=== PATIENT | male | born 1950 | race Caucasian/White ===

== ENCOUNTER 2016-11-13 23:59 | Inpatient (IN) | payer MEDICARE ==
--- NOTE | ~2016-11-13 | DS ---
Discharge Summary [facility] [address] [place]. [address] NAME: SHAZIA CASTRO : 52 STATUS : DIS IN PAT#: [id number] AGE: 66 ADM/REG DATE : 11/14/16 MR#: [id number] REPORT SERV DATE: 11/21/16 DICTATED BY: FANG LU DATE: 11/20/16 REPORT STATUS : Draft TRANSCRIBED BY: MODL DATE: 11/20/16 ADMISSION DATE: 11/14/2016 DISCHARGE DATE: 11/20/2016 ADDENDUM: The patient was transferred to inpatient SNF on 11/20/2016. This is actually an addendum to the discharge summary that I have already dictated on this patient and this was dictated on 11/19/2016. The patient was not discharged up until 11/20/2016 because the patient's family who is mainly his brother who now has the power of consumer attorney over the patient was undecided about whether the patient will get a feeding tube or not. The patient was found to be at risk for aspiration because of his previous CVA. Also, at this time as the patient was in and out of confusion, we were unsure about the decision making capacity. Hence, we obtained a psychiatric consult by Dr. Silva, who evaluated the patient and also made the decision that the patient does have the ability to make his own decisions at least as of now. However, in the future because of vascular dementia, the patient said that if he is unable to make decisions on his own, he gives his brother the power of consumer attorney verbally. For now, the patient decided that he will get a feeding tube if it was not safe for him to swallow regular food. Hence, we obtained a GI consult and Dr. Maribel Scott evaluated the patient. However, at this time, she felt that he was not a candidate for PEG tube or G-tube placement as this would not put him at any lower risk for aspiration than eating or drinking soft mechanical diet with aspiration precautions. This was conveyed to the patient and then the patient finally decided that he did not want a feeding tube and he would go on soft mechanical diet with aspiration precautions as he has been doing so far. Hence, he is being discharged to inpatient rehab/SNF in stable condition and his code status continues to be a DO NOT RESUSCITATE status and this is per patient's wishes as of now. This is an addendum to my discharge summary that has already been dictated on this patient and I have spent about 35 minutes in coordinating discharge care of this patient including [id number] encounter and summarizing this discharge on 11/20/2016. All the other medications and all the other content that has been dictated in my discharge summary completely remains exactly the same as it has been. DICTATED BY: Juan A Sampson/MARTINA Fang Lu M.D. / [id number] CC: Discharge Summary [address] [address] NAME: SHAZIA CASTRO : 52 STATUS : DIS IN PAT#: [id number] AGE: 66 ADM/REG DATE : 11/14/16 MR#: [id number] REPORT SERV DATE: 11/21/16 DICTATED BY: FANG LU DATE: 11/20/16 REPORT STATUS : Draft TRANSCRIBED BY: MARTINA DATE: 11/20/16 Fang Lu M.D.
--- NOTE | ~2016-11-13 | HP ---
History And Physical [place] [address] [facility] [place]. [address] NAME: SHAZIA BANUELOS : 52 STATUS : ADM IN PAT#: [id number] AGE: 66 ADM/REG DATE : 11/14/16 MR#: [id number] REPORT SERV DATE: 11/14/16 DICTATED BY: PANCHO ARELLANO DATE: 11/14/16 REPORT STATUS : Draft TRANSCRIBED BY: MODElicia DATE: 11/14/16 DATE OF ADMISSION: 11/14/2016 POINT OF ENTRY: [facility] Emergency Department. PRIMARY CARE PHYSICIAN: None at this time, is to be Dr. Fazal Roberson beginning next week. CHIEF COMPLAINT: Weakness, left wrist pain, and concerns for aspiration. HISTORY OF PRESENT ILLNESS: Mr. Banuelos is a 66-year-old gentleman with history of insulin-dependent diabetes mellitus type 2, hypertension, hyperlipidemia, chronic kidney disease stage 3 to stage 4 as well as a recent cerebrovascular accident with resulting left- sided hemiparesis, who is brought to the emergency department today with reports of worsening weakness, anorexia, concern for aspiration, as well as severe left wrist pain. The patient was admitted to [facility] on 09/05/2016 for fall with left-sided weakness and diagnosed with an acute cerebrovascular accident in the right basal ganglia region. The patient was then transferred to the rehab unit at [facility] on 09/25/2016 and was discharged from there on 10/30/2016. The patient states that he has had persistent left wrist pain since admission in August secondary to the fall related to the stroke. He reportedly had plain films as well as an MRI of the left upper extremity at [facility] that was otherwise unremarkable. The patient's hospital stay also noted for dysphagia related to his stroke, is currently on mechanical soft diet with thickened liquids. He also had some troubles with depression requiring Psychiatry consultation and adjustment of some medications. The patient also noted to have chronic kidney disease. He states that the first few days after discharge from the Rehab Facility he was doing well, but then over the past week to week and a half, family has been concerned that he has gotten progressively weaker. He is not eating as much as he used to. He is becoming more lethargic. About a week and a half ago, home Health was concerned for possible pneumonia versus bronchitis. He was seen in an urgent care center and prescribed a course of azithromycin and steroids for presumed bronchitis. These have now been completed for about a week. Family states that he does occasionally cough after eating despite use of aspiration precautions, and they have documented two separate choking episodes this week alone. They deny any fevers, night sweats, chills, chest pain, abdominal pain, nausea, vomiting, diarrhea, constipation, dysuria, melena, hematochezia, or hemoptysis. The patient reports cough, weakness, and left wrist pain as his main complaints. Initial evaluation in the emergency department noted for a CT scan of the brain that was unremarkable. EKG is normal sinus rhythm. Chest x-ray shows a possible right lower lobe infiltrate. Labs notable for a white count of 15,300. The patient was subsequently admitted to the Hospitalist Service for further evaluation and management. History And Physical [address] [address] NAME: SHAZIA BANUELOS : 52 STATUS : ADM IN [facility]#: [id number] AGE: 66 ADM/REG DATE : 11/14/16 MR#: [id number] REPORT SERV DATE: 11/14/16 DICTATED BY: PANCHO ARELLANO DATE: 11/14/16 REPORT STATUS : Draft TRANSCRIBED BY: MARTINA DATE: 11/14/16 REVIEW OF SYSTEMS: Comprehensive review of systems otherwise negative unless listed in history of present illness. PREVIOUS MEDICAL HISTORY: 1. History of cerebrovascular accident with resulting left-sided hemiparesis and dysphagia. 2. Insulin-dependent diabetes mellitus type 2. 3. Hypertension. 4. Hyperlipidemia. 5. Chronic kidney disease stage 3 to stage 4. 6. COPD. 7. Depression. 8. Dysphagia and aspiration risk. SURGICAL HISTORY: Inguinal hernia repair. ALLERGIES: NO KNOWN DRUG ALLERGIES. HOME MEDICATIONS: 1. Aspirin 325 mg daily. 2. Atorvastatin 80 mg at bedtime. 3. Carvedilol 25 mg b.i.d. 4. Depakote 1000 mg b.i.d. 5. Docusate 100 mg b.i.d. 6. Pepcid 20 mg daily. 7. Levemir 10 units daily. 8. Insulin sliding scale. 9. Claritin 10 mg daily. 10.Niacin a 1000 mg daily. 11.Nifedipine 90 mg daily. 12.Ditropan XL 10 mg daily. 13.Protonix 40 mg daily. 14.MiraLAX one packet daily. 15.Risperdal 0.25 mg b.i.d. 16.Requip 0.125 mg at bedtime. 17.Aldactone 25 mg daily. 18.Tramadol 50 mg q.6 hours p.r.n. SOCIAL HISTORY: He is a former smoker, but quit with the diagnosis of a stroke. No longer uses alcohol or drugs, which he previously did prior to a stroke, now living with his brother after discharge from rehab. FAMILY MEDICAL HISTORY: Mother with diabetes, hypertension, Parkinson disease. Father with Alzheimer's. Siblings with diabetes, hypertension, and hyperlipidemia. History And Physical [address] [address] NAME: SHAZIA BANUELOS : 52 STATUS : ADM IN [facility]#: [id number] AGE: 66 ADM/REG DATE : 11/14/16 MR#: [id number] REPORT SERV DATE: 11/14/16 DICTATED BY: PANCHO ARELLANO DATE: 11/14/16 REPORT STATUS : Draft TRANSCRIBED BY: MARTINA DATE: 11/14/16 LABS AND IMAGIN. White count is 15.3, hemoglobin is 9.1, hematocrit is 25.8, and platelet count is 103. INR 1.2. 2. Sodium is 146, potassium 5.0, chloride 117, carbon dioxide 21, BUN 60, creatinine 2.56, glucose is 79, calcium is 8.9, protein 6.3, albumin is 2.2, bilirubin is 0.4, ALT is 62, AST 34, and alkaline phosphatase is 70. 3. Troponin is negative. 4. Urinalysis: Specific gravity is 1.013, hazy with no evidence of any infection with some protein and glucose in it though. 5. Chest x-ray per review shows right lower lobe infiltrate. 6. EKG per my review shows normal sinus rhythm with some inferior Q-waves, no evidence of any acute ischemic infarction. CT scan of the head shows old lacunar cerebrovascular accident as well as some chronic age-related ischemic changes but no acute intracranial abnormality. PHYSICAL EXAMINATION: VITAL SIGNS: Temperature is 98.1 degrees Fahrenheit, pulse is 71, respirations 16, saturating 97% on room air, and blood pressure 134/60. GENERAL: The patient is awake, alert, in no acute distress. Resting comfortably in bed. He is an elderly chronically ill-appearing male. Family is at bedside. HEENT: Atraumatic and normocephalic. Dry mucous membranes. Pupils are equal, round, reactive to light and accommodation. Extraocular eye movements intact. No scleral icterus. NECK: No jugular venous distention. No carotid bruits. CARDIAC: Regular rate and rhythm. No murmurs or gallops. Normal S1, S2. LUNGS: Does have some faint inspiratory crackles and rhonchi in the right lung base. ABDOMEN: Soft, nontender, nondistended. Good bowel sounds. No rebound, guarding, or rigidity. EXTREMITIES: Warm and perfused. No cyanosis, clubbing, or edema. The left wrist is very tender to palpation. I do not appreciate any overlying effusion, erythema, or swelling in the left wrist area. SKIN: Warm and dry. PSYCH: Affect appropriate. NEURO: Alert and oriented x3. Cranial nerves 2 through 12 grossly intact first except for some left-sided facial droop and mild dysarthria. His left upper extremity is weak and however limited by a wrist pain. ASSESSMENT: Mr. Banuelos is a 66-year-old gentleman with recent acute cerebrovascular accident resulting in left-sided hemiparesis and dysphagia who presents to the emergency room today with worsening weakness, cough, wrist pain, and generalized failure to thrive and found to have evidence of a right lower lobe pneumonia concerning for aspiration pneumonia as well as chronic kidney stage 3 to stage 4. PROBLEM LIST: 1. Right lower lobe pneumonia concerning for possible aspiration pneumonia. 2. Weakness and debility. 3. Left wrist pain. 4. Chronic kidney disease stage 3 to stage 4. History And Physical [address] [address] NAME: SHAZIA BANUELOS : 52 STATUS : ADM IN [facility]#: [id number] AGE: 66 ADM/REG DATE : 11/14/16 MR#: [id number] REPORT SERV DATE: 11/14/16 DICTATED BY: PANCHO ARELLANO DATE: 11/14/16 REPORT STATUS : Draft TRANSCRIBED BY: MODElicia DATE: 11/14/16 5. Insulin-dependent diabetes mellitus, type 2. 6. History of cerebrovascular accident. 7. Dysphagia. 8. Leukocytosis. 9. Thrombocytopenia. PLAN: 1. Pneumonia, likely aspiration pneumonia. We will place the patient on IV antibiotics to cover healthcare associated as well as aspiration pneumonia. Try to obtain sputum cultures. Order urinary antigens. We will place the patient on aspiration precautions and make the patient nothing by mouth pending evaluation by Speech Therapy. 2. Weakness and debility. Likely secondary to the patient's underlying stroke as well as other medical comorbidities such as chronic kidney disease stage 3 to 4 as well as acute pneumonia. We will ask Physical Therapy to evaluate the patient as well as Case Management Social Work consultations as the patient likely will need fci versus acute rehab placement again. 3. Left wrist pain. The patient states he has had left wrist pain because of his fall in August. They state that he had an MRI at [facility], which we will try to obtain records before we repeat any imaging here. 4. Chronic kidney disease stage 3 to stage 4. The patient appears to be within his recent baseline per review of records that were obtained overnight. Continue some gentle IV hydration. 5. Insulin-dependent diabetes mellitus type 2, level 1 insulin sliding scale. 6. History of cerebrovascular accident. Continue the patient's home aspirin and statin. Again, physical therapy consultation. 7. DVT prophylaxis. Heparin subcu. CODE STATUS: The patient wishes to be full code. SUE/MODL Pancho Arellano MD / [id number] CC: Jaret Dupont DO
--- NOTE | ~2016-11-13 | DS ---
Discharge Summary [facility] [address] [facility] [place]. [address] NAME: SHAZIA BANUELOS : 52 STATUS : ADM IN [facility]#: [id number] AGE: 66 ADM/REG DATE : 11/14/16 MR#: [id number] REPORT SERV DATE: 11/19/16 DICTATED BY: FANG LU DATE: 11/18/16 REPORT STATUS : Draft TRANSCRIBED BY: MODElicia DATE: 11/18/16 ADMISSION DATE: 11/14/2016 DISCHARGE DATE: 11/17/2016 Date of discharge to inpatient rehab/SNF is 11/17/2016. CONDITION ON DISCHARGE: Stable. CODE STATUS: Code status of the patient is Do Not Resuscitate status. DIAGNOSES ON DISCHARGE: 1. Aspiration pneumonia - resolved after five days of IV antibiotics. 2. Acute/subacute cerebrovascular accident with left-sided hemiparesis that is fairly new. 3. Multiple old lacunar strokes with minimal right-sided weakness, dysphagia, aphasia, and also mild chronic encephalopathy. 4. Acute kidney injury on chronic kidney disease - resolved with IV fluids. 5. Chronic kidney disease, stage III with creatinine at baseline at around 2 which is stable. 6. Insulin-requiring diabetes mellitus - stable. 7. Diabetic nephropathy with chronic kidney disease, stage III as mentioned above. BRIEF HOSPITAL COURSE: Mr. Banuelos is a 66-year-old gentleman with a history of multiple lacunar strokes in the past, chronic encephalopathy, and also chronic aphasia and dysphagia who came in with increasing weakness on the left side at this time. CT scan of the head did show several old lacunar strokes. The patient may have suffered another acute/subacute stroke which may have worsened his left-sided hemiparesis. Also, he was admitted for aspiration pneumonia along with this and started on IV antibiotics namely IV Flagyl and also on levofloxacin. The patient's condition improved and his aspiration pneumonia completely resolved on the day of discharge. His left-sided hemiparesis persists, his aphasia persists, and his dysphagia persists. After talking at length with the patient, he refuses a feeding tube. Hence, his diet will be nectar thick liquids thickened with Thick-it and also Glucerna thickened with Thick-it at least twice a day. The patient will be fed with strict aspiration precautions that will be taken. Other than this, the patient has refused a feeding tube, but his code status is a Do Not Resuscitate status. This is also after discussing with his brother, Ever Banuelos. His acute kidney injury has also improved with IV fluids during hospitalization. Hence, he is being sent to inpatient rehab for further rehab on his stroke though discharge medications will be as follows: First of all, the patient will be going on amlodipine 10 mg p.o. crushed daily, aspirin 325 mg p.o. daily, Lipitor 80 mg p.o. daily, Depakote 1000 mg p.o. b.i.d. for seizure precautions, Colace 100 mg p.o. b.i.d., Pepcid 20 mg once a day, Heparin 5000 units subcutaneously every 8 hours for DVT prevention, sliding scale insulin at low dose, Claritin 10 mg once a day, carvedilol 12.5 mg p.o. twice a day, niacin 1000 mg p.o. daily, Ditropan will not be continued, Protonix 40 mg before breakfast, Risperdal 0.25 mg p.o. b.i.d., Requip 0.125 mg p.o. at bedtime, spironolactone 25 mg p.o. daily. The patient will also be Discharge Summary [address] [address] NAME: SHAZIA BANUELOS : 52 STATUS : ADM IN [facility]#: [id number] AGE: 66 ADM/REG DATE : 11/14/16 MR#: [id number] REPORT SERV DATE: 11/19/16 DICTATED BY: FANG LU DATE: 11/18/16 REPORT STATUS : Draft TRANSCRIBED BY: MODL DATE: 11/18/16 on DuoNeb q.4 hours while awake. Levemir insulin 10 units subcu daily. Labs that I have that are most recent on discharge include the following: On the day of discharge, his sodium is 142, potassium is 3.7, bicarb is 16, BUN is 33, creatinine is 2.1. WBC count is 10.5, hemoglobin 8.6, hematocrit is 24.8, and platelet count is 141. His TSH is normal at 0.674. CT scan findings are as above. Hence, he is being discharged to inpatient rehab in stable condition to rehab related from his stroke. I have spent about 40 minutes in coordinating discharge care of this patient. DICTATED BY: Juan A Sampson/MARTINA Fang Lu M.D. / [id number] CC: Fang Lu M.D.
[2016-11-14 00:06] LABS: BASOPHILS 0.1 %; BASOPHILS ABSOLUTE 0.01 10/3/uL (0.0-0.16); EOSINOPHILS 0.5 %; EOSINOPHILS ABSOLUTE 0.07 10/3/uL (0.0-0.53); HEMATOCRIT 25.8 % (40.0-51.0); HEMOGLOBIN 9.1 g/dL (13.6-17.8); IMMATURE GRANULOCYTES 0.5 %; IMMATURE GRANULOCYTES ABSOLUTE 0.08 10/3/uL (0.0-0.11); LYMPHOCYTES 11.4 %; LYMPHOCYTES ABSOLUTE 1.74 10/3/uL (0.67-4.30); MANUAL DIFF NO %; MEAN CORPUS HGB CONC 35.3 g/dL (32.0-36.0); MEAN CORPUSCULAR HEMOGLOB 33.2 pg (26.0-34.0); MEAN CORPUSCULAR VOLUME 94.2 fL (80-100); MEAN PLATELET VOLUME 9.5 fL (9.2-13.0); MONOCYTES 10.5 %; NEUTROPHILS ABSOLUTE 11.78 10/3/uL (2.02-8.40); PLATELET COUNT 103 10/3/uL (150-400); RBC DISTRIBUTION WIDTH 14.2 % (12.0-16.0); RED CELL COUNT 2.74 10/6/uL (4.7-6.1); WHITE BLOOD CELLS 15.3 10/3/uL (4.5-10.5)
[2016-11-14 00:18] LABS: INTERNATIONAL NORMAL RATI 1.2 UNITS (-); PARTIAL THROMBO TIME 35.1 SEC (22.5-37.2)
[2016-11-14 00:28] LABS: A/G RATIO 0.5 (0.7-1.9); ALBUMIN 2.2 G/DL (3.5-5.0); ALKALINE PHOSPHATASE 70 U/L (45-117); BUN (BLOOD UREA NITROGEN) 60 MG/DL (6-23); CALCIUM, SERUM 8.9 MG/DL (8.5-10.4); CHLORIDE, SERUM 117 MMOL/L (96-112); CO2 (CARBON DIOXIDE) 21 MMOL/L (24-34); CREATININE 2.56 MG/DL (0.70-1.30); GFR AFRICAN AMERICAN 29 ML/MIN (>=60); GFR NON AFRICAN AMERICAN 25 ML/MIN (>=60); GLOBULIN 4.1 G/DL (2.5-4.1); GLUCOSE, SERUM 79 MG/DL (60-99); SGOT(AST) 34 U/L (5-40); SGPT(ALT) 62 U/L (5-65); SODIUM, SERUM 146 MMOL/L (135-148); TOTAL BILIRUBIN 0.4 MG/DL (0-1.2); TOTAL PROTEIN 6.3 G/DL (6.0-8.5); TROPONIN I 0.02 NG/ML (<0.05)
[2016-11-14 00:29] LABS: PROTIME (NOT ORD) 14.9 SEC (12.0-14.5)
[2016-11-14 00:44] LABS: ASCORBIC ACID (UR NOT ORDER) NEG (NEG); BILIRUBIN, URINE NEGATIVE (NEG); ER URINALYSIS TAT 0 Hrs 00 Mins; KETONE, URINE NEGATIVE (NEG); LEUKOCYTE ESTERASE(NOT OR NEG (NEG); NITRITE (URINE) NEG (NEG); WBC (NOT ORDERED) (RFLEX) 0 (0-5)
[2016-11-14 01:46] LABS: PROCALCITONIN 0.34 ng/mL (<0.5)
[2016-11-14] MEDS ORDERED: LIPITOR80 MG PO (03:12)
[2016-11-14] MEDS ORDERED: ASA5GR PO (03:12)
[2016-11-14] MEDS ORDERED: COREG25 PO (03:12)
[2016-11-14] MEDS ORDERED: DEPAKOT500 PO (03:13)
[2016-11-14] MEDS ORDERED: PEP20 PO (03:14)
[2016-11-14] MEDS ORDERED: DSS PO (03:14)
[2016-11-14] MEDS ORDERED: LEVEMIR SC (03:14)
[2016-11-14] MEDS ORDERED: HUMALOG SC (03:16)
[2016-11-14] MEDS ORDERED: CLARIT10 PO (03:17)
[2016-11-14] MEDS ORDERED: NIACOR500 MG PO (03:17)
[2016-11-14] MEDS ORDERED: DITROPAN XL10 MG PO (03:18)
[2016-11-14] MEDS ORDERED: PROTONIX PO (03:18)
[2016-11-14] MEDS ORDERED: ADALAT CC90 MG PO (03:18)
[2016-11-14] MEDS ORDERED: RISPERDAL0.25 MG PO (03:19)
[2016-11-14] MEDS ORDERED: MIRALAX POWDER1 PKT PO (03:19)
[2016-11-14] MEDS ORDERED: SPIRO25 PO (03:20)
[2016-11-14] MEDS ORDERED: REQUIP25 PO (03:20)
[2016-11-14] MEDS ORDERED: ULTRAM50 PO (03:20)
[2016-11-14 05:53] LABS: ALLENS TEST Pos; BE (BASE EXCESS) -7.6 MEQ/L (0 +/- 2.5); CARBOXYHEMOGLOBIN 0.4 % (0-3); HEMOBLOGIN CONTENT 11.5 G/DL (14-18); INSTRUMENT SERIAL # 8083; METHEMOGLOBIN 0.3 % (0-3); OPERATOR ID 16469; PCO2 (CO2 TENSION) 27 MMHG (35-45); PO2 (O2 TENSION) 69 MMHG (79-93); SAMPLE Arterial; pH 7.39 (7.37-7.43)
[2016-11-14 06:16] LABS: CREATININE, URINE 72.7 MG/DL
[2016-11-14 07:40] LABS: BASOPHILS 0.1 %; BASOPHILS ABSOLUTE 0.01 10/3/uL (0.0-0.16); EOSINOPHILS 0.5 %; EOSINOPHILS ABSOLUTE 0.07 10/3/uL (0.0-0.53); HEMATOCRIT 25.1 % (40.0-51.0); HEMOGLOBIN 8.7 g/dL (13.6-17.8); IMMATURE GRANULOCYTES 0.3 %; IMMATURE GRANULOCYTES ABSOLUTE 0.04 10/3/uL (0.0-0.11); LYMPHOCYTES 9.9 %; LYMPHOCYTES ABSOLUTE 1.32 10/3/uL (0.67-4.30); MEAN CORPUS HGB CONC 34.7 g/dL (32.0-36.0); MEAN CORPUSCULAR HEMOGLOB 33.2 pg (26.0-34.0); MEAN CORPUSCULAR VOLUME 95.8 fL (80-100); MEAN PLATELET VOLUME 9.3 fL (9.2-13.0); MONOCYTES 9.6 %; MONOCYTES ABSOLUTE 1.28 10/3/uL (0.21-1.20); NEUTROPHILS 79.6 %; NEUTROPHILS ABSOLUTE 10.66 10/3/uL (2.02-8.40); PLATELET COUNT 95 10/3/uL (150-400); RBC DISTRIBUTION WIDTH 14.1 % (12.0-16.0); RED CELL COUNT 2.62 10/6/uL (4.7-6.1); WHITE BLOOD CELLS 13.4 10/3/uL (4.5-10.5)
[2016-11-14 07:42] LABS: MANUAL DIFF NO %
[2016-11-14 08:07] LABS: ALBUMIN 2.1 G/DL (3.5-5.0); BUN (BLOOD UREA NITROGEN) 59 MG/DL (6-23); CALCIUM, SERUM 8.7 MG/DL (8.5-10.4); CHLORIDE, SERUM 118 MMOL/L (96-112); CO2 (CARBON DIOXIDE) 17 MMOL/L (24-34); CREATININE 2.53 MG/DL (0.70-1.30); GFR AFRICAN AMERICAN 30 ML/MIN (>=60); GFR NON AFRICAN AMERICAN 26 ML/MIN (>=60); GLUCOSE, SERUM 90 MG/DL (60-99); PHOSPHORUS, SERUM 4.7 MG/DL (2.5-4.5); POTASSIUM, SERUM 4.5 MMOL/L (3.5-5.3); SODIUM, SERUM 146 MMOL/L (135-148); ULTRASENSITIVE TSH 0.674 MCIU/ML (0.358-3.740)
[2016-11-14 08:34] LABS: PROCALCITONIN 0.28 ng/mL (<0.5)
[2016-11-14 11:29] LABS: GLYCOHEMOGLOBIN (HbA1c) 6.9 % (4.7-6.1)
[2016-11-15 06:35] LABS: HEMATOCRIT 26.8 % (40.0-51.0); HEMOGLOBIN 8.9 g/dL (13.6-17.8); MEAN CORPUS HGB CONC 33.2 g/dL (32.0-36.0); MEAN CORPUSCULAR HEMOGLOB 32.7 pg (26.0-34.0); MEAN CORPUSCULAR VOLUME 98.5 fL (80-100); MEAN PLATELET VOLUME 9.5 fL (9.2-13.0); PLATELET COUNT 106 10/3/uL (150-400); RBC DISTRIBUTION WIDTH 14.1 % (12.0-16.0); RED CELL COUNT 2.72 10/6/uL (4.7-6.1)
[2016-11-15 06:38] LABS: MANUAL DIFF YES %
[2016-11-15 06:45] LABS: CALCIUM, SERUM 8.9 MG/DL (8.5-10.4); CHLORIDE, SERUM 119 MMOL/L (96-112); CO2 (CARBON DIOXIDE) 17 MMOL/L (24-34); CREATININE 2.18 MG/DL (0.70-1.30); GFR AFRICAN AMERICAN 36 ML/MIN (>=60); GFR NON AFRICAN AMERICAN 31 ML/MIN (>=60); PHOSPHORUS, SERUM 4.1 MG/DL (2.5-4.5); POTASSIUM, SERUM 4.2 MMOL/L (3.5-5.3); SODIUM, SERUM 146 MMOL/L (135-148)
[2016-11-15 06:46] LABS: BUN (BLOOD UREA NITROGEN) 51 MG/DL (6-23); GLUCOSE, SERUM 109 MG/DL (60-99)
[2016-11-15 07:41] LABS: BAND NEUTROPHILS 9 %; LYMPHOCYTES 9 %; MONOCYTES 7 %; PLATELET ESTIMATE SLT DEC (ADEQUATE); RBC MORPHOLOGY NORM (NORMAL); SEGMENTED NEUTROPHIL (0) 75 %; TOTAL NUCLEATED CELLS 100
[2016-11-16 04:37] LABS: BASOPHILS 0.3 %; BASOPHILS ABSOLUTE 0.02 10/3/uL (0.0-0.16); EOSINOPHILS 1.3 %; HEMATOCRIT 25.4 % (40.0-51.0); HEMOGLOBIN 8.7 g/dL (13.6-17.8); IMMATURE GRANULOCYTES 0.8 %; IMMATURE GRANULOCYTES ABSOLUTE 0.06 10/3/uL (0.0-0.11); LYMPHOCYTES 19.5 %; LYMPHOCYTES ABSOLUTE 1.56 10/3/uL (0.67-4.30); MEAN CORPUS HGB CONC 34.3 g/dL (32.0-36.0); MEAN CORPUSCULAR HEMOGLOB 32.6 pg (26.0-34.0); MEAN PLATELET VOLUME 9.1 fL (9.2-13.0); NEUTROPHILS 68.1 %; NEUTROPHILS ABSOLUTE 5.44 10/3/uL (2.02-8.40); PLATELET COUNT 118 10/3/uL (150-400); RBC DISTRIBUTION WIDTH 14.3 % (12.0-16.0); RED CELL COUNT 2.67 10/6/uL (4.7-6.1)
[2016-11-16 04:41] LABS: MANUAL DIFF NO %; MEAN CORPUSCULAR VOLUME 95.1 fL (80-100)
[2016-11-16 04:53] LABS: CHLORIDE, SERUM 121 MMOL/L (96-112); CREATININE 1.96 MG/DL (0.70-1.30); GFR AFRICAN AMERICAN 40 ML/MIN (>=60); GFR NON AFRICAN AMERICAN 35 ML/MIN (>=60); GLUCOSE, SERUM 96 MG/DL (60-99); PHOSPHORUS, SERUM 3.7 MG/DL (2.5-4.5); POTASSIUM, SERUM 3.6 MMOL/L (3.5-5.3); SODIUM, SERUM 152 MMOL/L (135-148)
[2016-11-16 04:57] LABS: BUN (BLOOD UREA NITROGEN) 42 MG/DL (6-23); CO2 (CARBON DIOXIDE) 22 MMOL/L (24-34)
[2016-11-17 05:51] LABS: BASOPHILS 0.1 %; BASOPHILS ABSOLUTE 0.01 10/3/uL (0.0-0.16); EOSINOPHILS 1.6 %; EOSINOPHILS ABSOLUTE 0.13 10/3/uL (0.0-0.53); HEMATOCRIT 25.3 % (40.0-51.0); HEMOGLOBIN 8.7 g/dL (13.6-17.8); IMMATURE GRANULOCYTES 0.5 %; IMMATURE GRANULOCYTES ABSOLUTE 0.04 10/3/uL (0.0-0.11); LYMPHOCYTES 18.9 %; LYMPHOCYTES ABSOLUTE 1.53 10/3/uL (0.67-4.30); MEAN CORPUS HGB CONC 34.4 g/dL (32.0-36.0); MEAN CORPUSCULAR HEMOGLOB 33.1 pg (26.0-34.0); MEAN CORPUSCULAR VOLUME 96.2 fL (80-100); MEAN PLATELET VOLUME 8.8 fL (9.2-13.0); MONOCYTES 8.4 %; MONOCYTES ABSOLUTE 0.68 10/3/uL (0.21-1.20); NEUTROPHILS 70.5 %; NEUTROPHILS ABSOLUTE 5.72 10/3/uL (2.02-8.40); PLATELET COUNT 128 10/3/uL (150-400); RBC DISTRIBUTION WIDTH 13.8 % (12.0-16.0); RED CELL COUNT 2.63 10/6/uL (4.7-6.1); WHITE BLOOD CELLS 8.1 10/3/uL (4.5-10.5)
[2016-11-17 05:52] LABS: MANUAL DIFF NO %
[2016-11-17 05:55] LABS: BUN (BLOOD UREA NITROGEN) 40 MG/DL (6-23); CALCIUM, SERUM 8.7 MG/DL (8.5-10.4); CHLORIDE, SERUM 119 MMOL/L (96-112); CO2 (CARBON DIOXIDE) 25 MMOL/L (24-34); CREATININE 2.02 MG/DL (0.70-1.30); GFR AFRICAN AMERICAN 39 ML/MIN (>=60); GFR NON AFRICAN AMERICAN 34 ML/MIN (>=60); POTASSIUM, SERUM 3.7 MMOL/L (3.5-5.3); SODIUM, SERUM 151 MMOL/L (135-148)
[2016-11-17 05:56] LABS: GLUCOSE, SERUM 173 MG/DL (60-99)
[2016-11-18 05:57] LABS: BASOPHILS 0.1 %; BASOPHILS ABSOLUTE 0.01 10/3/uL (0.0-0.16); EOSINOPHILS 1.5 %; EOSINOPHILS ABSOLUTE 0.16 10/3/uL (0.0-0.53); HEMATOCRIT 24.8 % (40.0-51.0); HEMOGLOBIN 8.6 g/dL (13.6-17.8); IMMATURE GRANULOCYTES 0.2 %; IMMATURE GRANULOCYTES ABSOLUTE 0.02 10/3/uL (0.0-0.11); LYMPHOCYTES 16.1 %; LYMPHOCYTES ABSOLUTE 1.69 10/3/uL (0.67-4.30); MANUAL DIFF NO %; MEAN CORPUS HGB CONC 34.7 g/dL (32.0-36.0); MEAN CORPUSCULAR HEMOGLOB 32.6 pg (26.0-34.0); MEAN CORPUSCULAR VOLUME 93.9 fL (80-100); MEAN PLATELET VOLUME 8.9 fL (9.2-13.0); MONOCYTES 3.2 %; MONOCYTES ABSOLUTE 0.34 10/3/uL (0.21-1.20); NEUTROPHILS 78.9 %; NEUTROPHILS ABSOLUTE 8.29 10/3/uL (2.02-8.40); PLATELET COUNT 141 10/3/uL (150-400); RBC DISTRIBUTION WIDTH 13.4 % (12.0-16.0); RED CELL COUNT 2.64 10/6/uL (4.7-6.1); WHITE BLOOD CELLS 10.5 10/3/uL (4.5-10.5)
[2016-11-18 06:11] LABS: CALCIUM, SERUM 8.6 MG/DL (8.5-10.4); CHLORIDE, SERUM 111 MMOL/L (96-112); CO2 (CARBON DIOXIDE) 24 MMOL/L (24-34); CREATININE 2.18 MG/DL (0.70-1.30); GFR AFRICAN AMERICAN 36 ML/MIN (>=60); GFR NON AFRICAN AMERICAN 31 ML/MIN (>=60); GLUCOSE, SERUM 179 MG/DL (60-99); PHOSPHORUS, SERUM 2.3 MG/DL (2.5-4.5); POTASSIUM, SERUM 3.7 MMOL/L (3.5-5.3)
[2016-11-18 06:14] LABS: BUN (BLOOD UREA NITROGEN) 33 MG/DL (6-23); SODIUM, SERUM 142 MMOL/L (135-148)
[2016-11-19 05:22] LABS: BASOPHILS 0.1 %; BASOPHILS ABSOLUTE 0.01 10/3/uL (0.0-0.16); EOSINOPHILS 2.1 %; EOSINOPHILS ABSOLUTE 0.17 10/3/uL (0.0-0.53); HEMATOCRIT 25.2 % (40.0-51.0); HEMOGLOBIN 8.9 g/dL (13.6-17.8); IMMATURE GRANULOCYTES 0.4 %; IMMATURE GRANULOCYTES ABSOLUTE 0.03 10/3/uL (0.0-0.11); LYMPHOCYTES 22.6 %; LYMPHOCYTES ABSOLUTE 1.79 10/3/uL (0.67-4.30); MEAN CORPUS HGB CONC 35.3 g/dL (32.0-36.0); MEAN CORPUSCULAR HEMOGLOB 32.8 pg (26.0-34.0); MEAN PLATELET VOLUME 8.8 fL (9.2-13.0); MONOCYTES 4.8 %; MONOCYTES ABSOLUTE 0.38 10/3/uL (0.21-1.20); NEUTROPHILS ABSOLUTE 5.53 10/3/uL (2.02-8.40); PLATELET COUNT 140 10/3/uL (150-400); RBC DISTRIBUTION WIDTH 13.1 % (12.0-16.0); RED CELL COUNT 2.71 10/6/uL (4.7-6.1); WHITE BLOOD CELLS 7.9 10/3/uL (4.5-10.5)
[2016-11-19 05:23] LABS: MANUAL DIFF NO %
[2016-11-19 05:43] LABS: CALCIUM, SERUM 8.4 MG/DL (8.5-10.4); CHLORIDE, SERUM 108 MMOL/L (96-112); CO2 (CARBON DIOXIDE) 25 MMOL/L (24-34); CREATININE 1.89 MG/DL (0.70-1.30); GFR AFRICAN AMERICAN 42 ML/MIN (>=60); GFR NON AFRICAN AMERICAN 36 ML/MIN (>=60); PHOSPHORUS, SERUM 2.4 MG/DL (2.5-4.5); POTASSIUM, SERUM 3.6 MMOL/L (3.5-5.3); SODIUM, SERUM 139 MMOL/L (135-148)
[2016-11-19 05:46] LABS: BUN (BLOOD UREA NITROGEN) 26 MG/DL (6-23); GLUCOSE, SERUM 127 MG/DL (60-99)
[2016-11-20 04:23] LABS: BASOPHILS 0.1 %; BASOPHILS ABSOLUTE 0.01 10/3/uL (0.0-0.16); EOSINOPHILS ABSOLUTE 0.16 10/3/uL (0.0-0.53); HEMATOCRIT 24.9 % (40.0-51.0); HEMOGLOBIN 8.8 g/dL (13.6-17.8); IMMATURE GRANULOCYTES 0.5 %; IMMATURE GRANULOCYTES ABSOLUTE 0.04 10/3/uL (0.0-0.11); LYMPHOCYTES 18.8 %; LYMPHOCYTES ABSOLUTE 1.47 10/3/uL (0.67-4.30); MEAN CORPUS HGB CONC 35.3 g/dL (32.0-36.0); MEAN CORPUSCULAR HEMOGLOB 32.6 pg (26.0-34.0); MEAN CORPUSCULAR VOLUME 92.2 fL (80-100); MEAN PLATELET VOLUME 8.8 fL (9.2-13.0); MONOCYTES 6.5 %; MONOCYTES ABSOLUTE 0.51 10/3/uL (0.21-1.20); NEUTROPHILS 72.1 %; NEUTROPHILS ABSOLUTE 5.63 10/3/uL (2.02-8.40); PLATELET COUNT 163 10/3/uL (150-400); RBC DISTRIBUTION WIDTH 13.4 % (12.0-16.0); WHITE BLOOD CELLS 7.8 10/3/uL (4.5-10.5)
[2016-11-20 04:24] LABS: MANUAL DIFF NO %
[2016-11-20 04:34] LABS: BUN (BLOOD UREA NITROGEN) 23 MG/DL (6-23); CALCIUM, SERUM 8.2 MG/DL (8.5-10.4); CHLORIDE, SERUM 109 MMOL/L (96-112); CO2 (CARBON DIOXIDE) 25 MMOL/L (24-34); CREATININE 1.97 MG/DL (0.70-1.30); GFR AFRICAN AMERICAN 40 ML/MIN (>=60); GFR NON AFRICAN AMERICAN 35 ML/MIN (>=60); GLUCOSE, SERUM 150 MG/DL (60-99); PHOSPHORUS, SERUM 2.5 MG/DL (2.5-4.5); POTASSIUM, SERUM 3.5 MMOL/L (3.5-5.3); SODIUM, SERUM 142 MMOL/L (135-148)
[2016-11-24] MEDS ORDERED: COMBIVENT RESPIM4 GM INH (04:40)
[2016-11-24] MEDS ORDERED: ASTELIN NAS ×2 (04:40→11:56)
[2016-11-24] MEDS ORDERED: ASAEC PO (11:55)
[2016-11-24] MEDS ORDERED: NORV10 PO (11:55)
[2016-11-24] MEDS ORDERED: LIPITOR80 MG PO (11:57)
[2016-11-24] MEDS ORDERED: COREG12 PO (11:58)
[2016-11-24] MEDS ORDERED: DEPASPRINK PO (11:59)
[2016-11-24] MEDS ORDERED: D.O.S.100 MG PO (12:00)
[2016-11-24] MEDS ORDERED: PEP20 PO (12:01)
[2016-11-24] MEDS ORDERED: HEPA50006 SC (12:05)
[2016-11-24] MEDS ORDERED: DUONEB INH (12:07)
[2016-11-24] MEDS ORDERED: CLARIT10 PO (12:09)
[2016-11-24] MEDS ORDERED: LEVEMFLXPN SC (12:09)
[2016-11-24] MEDS ORDERED: NIACIN 500 PO (12:10)
[2016-11-24] MEDS ORDERED: NOVOPEN SC (12:11)
[2016-11-24] MEDS ORDERED: PROTONIX PO (12:13)
[2016-11-24] MEDS ORDERED: PULRESP.25 INH (12:14)
[2016-11-24] MEDS ORDERED: RISPERDAL0.25 MG PO (12:15)
[2016-11-24] MEDS ORDERED: REQUIP25 PO (12:16)
[2016-11-24] MEDS ORDERED: SPIRO25 PO (12:18)
[2016-11-24] MEDS ORDERED: PCET PO (12:20)
[2016-12-24] MEDS ORDERED: BROVANA15 MCG INH (15:43)
[2016-12-24] MEDS ORDERED: ASTELIN NAS (15:43)
[2016-12-24] MEDS ORDERED: LIPITOR40 PEG (15:43)
[2016-12-24] MEDS ORDERED: BUM1 PEG (15:44)
[2016-12-24] MEDS ORDERED: COREG25 PEG (15:44)
[2016-12-24] MEDS ORDERED: CONSTULOSE PEG (15:45)
[2016-12-24] MEDS ORDERED: HEPA50006 SC (15:45)
[2016-12-24] MEDS ORDERED: QUESLITE PEG (15:45)
[2016-12-24] MEDS ORDERED: HUMULIN R1 ML SC (15:46)
[2016-12-24] MEDS ORDERED: DUONEB INH (15:46)
[2016-12-24] MEDS ORDERED: LEVEMFLXPN SC (15:46)
[2016-12-24] MEDS ORDERED: PROTONI1 PEG (15:47)
[2016-12-24] MEDS ORDERED: NIACIN 500 PO (15:47)
[2016-12-24] MEDS ORDERED: DEPAKUDL PEG (15:48)
[2016-12-24] MEDS ORDERED: B1100 PEG (15:48)
[2016-12-24] MEDS ORDERED: ALBUTEROL0.083 % INH (15:49)
[2016-12-24] MEDS ORDERED: 8 HOUR650 MG PEG (15:52)
[2016-12-24] MEDS ORDERED: GLUCAGON IM (15:53)
[2016-12-24] MEDS ORDERED: ZOFRAN ODT4 MG PEG (15:54)
[2016-12-24] MEDS ORDERED: PCET PEG (15:55)
[2016-12-24] MEDS ORDERED: TRAZ50 PEG (15:55)
== END 2016-11-20 16:33 | DRG 177 ==
LOC: ER 23:59 → 5SO 11-14 03:53
PROVIDERS: Internal Medicine; Specialist
DX: J69.0 Pneumonitis due to inhalation of food and vomit (principal); I63.9 Cerebral infarction, unspecified; N17.9 Acute kidney failure, unspecified; N18.4 Chronic kidney disease, stage 4 (severe); E11.22 Type 2 diabetes mellitus with diabetic chronic kidney disease; D69.6 Thrombocytopenia, unspecified; I69.954 Hemiplegia and hemiparesis following unspecified cerebrovascular disease affecting left non-dominant side; Z66 Do not resuscitate; E78.5 Hyperlipidemia, unspecified; I12.9 Hypertensive chronic kidney disease with stage 1 through stage 4 chronic kidney disease, or unspecified chronic kidney disease; I69.991 Dysphagia following unspecified cerebrovascular disease; R13.10 Dysphagia, unspecified; J44.9 Chronic obstructive pulmonary disease, unspecified; F32.9 Major depressive disorder, single episode, unspecified; Z79.82 Long term (current) use of aspirin; Z79.84 Long term (current) use of oral hypoglycemic drugs; Z87.891 Personal history of nicotine dependence; Z83.3 Family history of diabetes mellitus; Z82.49 Family history of ischemic heart disease and other diseases of the circulatory system; I69.920 Aphasia following unspecified cerebrovascular disease
CPT/HCPCS: 70450; 71010; 73110-LT; 74230; 80048; 80053; 80069; 81001; 82140; 82570; 82805; 82962; 83036; 83735; 83935; 84100; 84145; 84300; 84443; 84484; 85025; 85610; 85730; 87040; 87449; 87641; 92611-GN; 93005; 94640; 96374; 97110-GO; 97162-GP; 97166-GO; 97530-GP; 97535-GO; 99285; A9270-GY; G8978-CL-GP; G8979-CK-GP; G8987-CL-GO; G8988-CK-GO; G8996-CJ-GN; G8997-CJ-GN; G8998-CJ-GN; J0692; J1170; J1953; J1956; J2405; J2543; J3370